=== PATIENT | female | born 1990 | race Caucasian/White ===

== ENCOUNTER 2016-08-08 10:35 | Emergency (ER) | payer BC, OTHER ==
[2016-08-08 12:10] LABS: HEMOGLOBIN 13.3 gm/dl (12.3-15.3); RED BLOOD COUNT 4.71 M/UL (4.00-5.10); WHITE BLOOD COUNT 8.7 K/UL (4.5-11.0)
[2016-08-08 12:30] LABS: BUN/CREATININE RATIO 13 (0-10)
== END 2016-08-08 16:58 | disposition home or self-care (01) ==
LOC: ER1 10:35
PROVIDERS: Physician Assistant Medical
DX: N83.201 Unspecified ovarian cyst, right side (principal)
CPT/HCPCS: 36415; 76830; 80053; 81001; 83605; 84703; 85025; 87086; 96361; 96374; 96375; 99284; J2270; J2405; J7030; J7050; Q9962

== ENCOUNTER 2020-03-08 18:19 | Emergency (ER) | payer BC ==
[2020-03-08] MEDS ORDERED: ZOFRAN ODT 4 MG4 MG PO (19:05)
[2020-03-08] MEDS ORDERED: TESSALON PERLE100 MG PO (19:05)
== END 2020-03-08 20:21 | disposition home or self-care (01) ==
LOC: ER1 18:19
DX: J06.9 Acute upper respiratory infection, unspecified (principal); R11.10 Vomiting, unspecified; Z20.822 Contact with and (suspected) exposure to COVID-19
CPT/HCPCS: 71045; 99284; U0003

== ENCOUNTER 2020-12-15 13:10 | Emergency (ER) | payer BC ==
[~2020-12-15 13:10] MED LIST: TESSALON PERLE100 MG PO; ZOFRAN ODT 4 MG4 MG PO
== END 2020-12-15 14:55 | disposition home or self-care (01) ==
LOC: ER1 13:10
DX: U07.1 COVID-19 (principal)
CPT/HCPCS: 99283; J1885

== ENCOUNTER 2021-09-25 18:14 | Emergency (ER) | payer BC ==
[~2021-09-25] VITALS: Ht 172.7 cm; Wt 64.4 kg
[2021-09-25 20:37] LABS: HEMOGLOBIN 11.9 gm/dl (12.3-15.3); RED BLOOD COUNT 4.38 M/UL (4.00-5.10); WHITE BLOOD COUNT 2.9 K/UL (4.5-11.0)
[2021-09-25 20:56] LABS: BUN/CREATININE RATIO 14 (0-10)
[2021-09-25] MEDS ORDERED: PHENERGAN 25 MG25 M1 PO (22:20)
== END 2021-09-25 23:11 | disposition home or self-care (01) ==
LOC: ER1 18:14
PROVIDERS: Student in an Organized Health Care Education/Training Program
DX: U07.1 COVID-19 (principal); G43.909 Migraine, unspecified, not intractable, without status migrainosus; Z23 Encounter for immunization
CPT/HCPCS: 71045; 80053; 84703; 85025; 96374; 96375; 99283; J0780; J1885; M0222